=== PATIENT | female | born 1995 | race Two or more races ===

== ENCOUNTER 2017-03-22 21:47 | Emergency (ER) | payer SELFPAY ==
[2017-03-22 21:57] VITALS: BP 111/67; PULSE 92; RESP 16; TEMP 98.6; O2SAT 95
--- NOTE | 2017-03-22 21:59 | EDPHY ---
H & P Stated Complaint: hives Time Seen by Provider: 03/22/17 21:58 HPI/ROS: HPI: This is a 21-year-old female presents with Chief Complaint: Hives, possible allergic reaction Location: Body Quality: Hives Duration: 1 hr prior to arrival Signs and Symptoms: No respiratory distress, no wheezing, no shortness of breath, no difficulty swallowing, no difficulty speaking, + itchiness Timing: Sudden Severity: Mild Context: Patient reports that she was lying in her bed resting that she has a cold for the last 2 days when she started to notice on her right arm a raised rash that was extremely itchy. It spread to her other arm as well as both of her thighs; sparing her torso. Patient has no history of environmental allergies. She did take a DayQuil tablet this afternoon for the 1st time or cold symptoms. She denies shortness of breath/wheezing/difficulty swallowing/ throat scratchiness. Patient is extremely concerned about cost as she is starting a new job and currently does not have insurance. LMP 1-2 weeks ago. Denies any new detergents/lotions/soap/foods. She did eat shrimp for dinner but has never had a reaction like this before after eating shrimp. Modifying Factors: None Comment: ROS: see HPI Constitutional: No fever, no chills, no weight loss Eyes: No blurred vision Respiratory: No shortness of breath, no cough Cardiovascular: No chest pain Gastrointestinal: No nausea, no vomiting, no diarrhea Genitourinary: No dysuria Extremities: No myalgias Neurologic: No weakness, no numbness Skin: No rashes Hematologic: No bruising, no bleeding MEDICAL/SURGICAL/SOCIAL HISTORY: Medical history: Generally healthy. Does not take any regular medications. Surgical history: Denies Social history: Employed. CONSTITUTIONAL: awake and alert, no obvious distress HEENT: Atraumatic and normocephalic, PERRL, EOMI. Tympanic membranes clear. Oropharynx clear, no posterior pharynx swelling, uvula midline, no exudate and moist pink mucosa. Airway patent. No lymphadenopathy. No meningismus. Cardiovascular: Normal S1/S2, regular rate, regular rhythm, without murmur rub or gallop. PULMONARY/CHEST: Symmetrical and nontender. Clear to auscultation bilaterally. Good air movement. No accessory muscle usage. ABDOMEN: Soft, nondistended, nontender, no rebound, no guarding, no peritoneal signs, no masses or organomegaly. No CVAT. EXTREMITIES: 2/2 pulses, strength 5/5, no deformities, no clubbing, no cyanosis or edema. NEUROLOGICAL: no focal neuro deficits. GCS 15. SKIN: Warm and dry, scattered hives on upper extremities and lower extremities; no petechiae; blanches with palpation. no erythema. no rash. Good capillary refill. Source: Patient Exam Limitations: No limitations - Personal History LMP (Females 10-55): 8-14 Days Ago Current Tetanus/Diphtheria Vaccine: Yes Current Tetanus Diphtheria and Acellular Pertussis (TDAP): Yes - Medical/Surgical History Hx Asthma: No Hx Chronic Respiratory Disease: No Hx Diabetes: No Hx Cardiac Disease: No Hx Renal Disease: No Hx Cirrhosis: No Hx Alcoholism: No Hx HIV/AIDS: No Hx Splenectomy or Spleen Trauma: No Other PMH: denies - Social History Smoking Status: Never smoked Constitutional: Initial Vital Signs Temperature (C) 37.0 C 03/22/17 21:54 Heart Rate 92 03/22/17 21:54 Respiratory Rate 16 03/22/17 21:54 Blood Pressure 111/67 03/22/17 21:54 O2 Sat (%) 95 03/22/17 21:54 O2 Delivery Mode Room Air Allergies/Adverse Reactions: No Known Allergies Allergy (Verified 03/22/17 21:57) Home Medications: Medication Instructions Recorded NK [No Known Home Meds] 07/26/13 Medical Decision Making ED Course/Re-evaluation: Vital signs reviewed upon arrival and stable. No signs of airway compromise/anaphylaxis/wheezing/angioedema Patient politely declined any medication therapy here in the emergency room. She wishes trial of [id number] medications of Benadryl and Pepcid. She is unsure of the offending agent that caused her hives today. This patient was seen under the supervision of my secondary supervising physician. I evaluated care for this patient independently. Discussed this patient with Dr. Rosenbaum who did not see the patient. Differential Diagnosis: Differential diagnosis includes but is not limited to scabies, bedbugs, contact dermatitis, allergic dermatitis, allergic reaction. Departure - Departure Disposition: Home, Routine, Self-Care Clinical Impression: Hives Condition: Good Instructions: Urticaria (ED), Cold Compress or Soak (ED) Additional Instructions: Take Benadryl 25-50 mg every 4-6 hours as needed for allergic reaction, itching , hives. Apply cool compresses to your skin and soak in tepid bath with oatmeal to alleviate itchiness. Take Pepcid 20 mg twice daily until hives have resolved. Please determine what offending agent caused your hives today. If at any time you developed wheezing, respiratory distress, inability to swallow; please return to the emergency room immediately for further evaluation. Referrals: [facility],. [Clinic] - As per Instructions
== END 2017-03-22 22:15 | disposition home or self-care (01) ==
DX: L50.9 Urticaria, unspecified (principal)